=== PATIENT | male | born 1970 | race Two or more races ===

== ENCOUNTER 2024-05-19 22:28 | Emergency (ER) | payer SELFPAY ==
[2024-05-19 22:42] VITALS: BP 113/83; PULSE 95; RESP 20; TEMP 36.6; O2SAT 100; BMI 25.4
[2024-05-19 23:05] LABS: Glucose Point of Care 262 mg/dL (70-110)
[2024-05-19 23:09] VITALS: BP 113/83; RESP 18; O2SAT 97
[2024-05-19 23:16] LABS: Basophils % 0.3 %; Eosinophils # 0.1 10^3/uL (0.0-0.8); Eosinophils % 2.4 %; Hematocrit 40.6 % (37-53); Lymphocytes # 1.2 10^3/uL (0.8-4.8); Lymphocytes % 19.8 %; Mean Corpuscular HGB Conc 34.2 g/dL (30-55); Mean Corpuscular Hemoglobin 29.9 pg (27-33); Mean Corpuscular Volume 87.3 fl (82-101); Mean Platelet Volume 10.2 fL (7.4-10.4); Monocytes # 0.9 10^3/uL (0.2-0.9); Monocytes % 15.7 %; Neutrophils # 3.64 10^3/uL (1.8-7.7); Neutrophils % 61.5 %; Nucleated Red Blood Cells % 0 %; Platelet Count 101 10^3/cmm (157-399); Red Blood Count 4.65 10^6/uL (3.85-5.65); Red Cell Distribution Width 12.6 % (12.1-15.1); White Blood Count 5.92 10^3/uL (3.29-11.43)
[2024-05-19 23:31] LABS: Ketone (Acetest) Serum Negative (Negative)
[2024-05-19 23:34] LABS: Alanine Aminotransferase 46 U/L (0-41); Albumin Level 4.2 g/dL (3.5-5.2); Alkaline Phosphatase 115 U/L (40-130); Aspartate Amino Transferase 98 U/L (0-40); Blood Urea Nitrogen 30 mg/dL (6-20); Calcium 9.1 mg/dL (8.5-10.5); Carbon Dioxide 31 mmol/L (22-29); Chloride 89 mmol/L (98-107); Creatinine Clr Calc Pharmacy 58.1877; Globulin 3.6 g/dL (1.3-4.6); Glomerular Filtration Rate 69.8 mL/min (90-130); Glucose 259 mg/dL (65-115); Osmolality Calculated 295 mOsm/kg (285-295); Sodium 135 mmol/L (136-145); Total Protein 7.8 g/dL (6.6-8.7)
[2024-05-19] MEDS: sodium chloride 0.9% 1,000 ML 999 ML IV (23:40)
--- NOTE | 2024-05-19 23:40 | CTR_ITS ---
PROCEDURE INFORMATION: Exam: CT Abdomen And Pelvis With Contrast Exam date and time: 05/19/2024 11:58 PM Age: 53 years old Clinical indication: Abdominal pain; Additional info: N/v/d, elevated lfts and bilirubin TECHNIQUE: Imaging protocol: Computed tomography of the abdomen and pelvis with contrast. Radiation optimization: All CT scans at this facility use at least one of these dose optimization techniques: automated exposure control; mA and/or kV adjustment per patient size (includes targeted exams where dose is matched to clinical indication); or iterative reconstruction. Contrast material: OMNI 350; Contrast volume: 100 ml; Contrast route: INTRAVENOUS (IV); COMPARISON: No relevant prior studies available. RADIATION DOSE METRICS: Total DLP (mGy-cm): 442.04 FINDINGS: Liver: Hepatic steatosis. Gallbladder and biliary ducts: Normal. No calcified stones. No ductal dilation. Pancreas: Normal. No ductal dilation. Spleen: Normal. No splenomegaly. Adrenal glands: Normal. No mass. Kidneys and ureters: Right kidney perinephric fluid versus motion artifact, please correlate for possible pyelonephritis. Stomach and bowel: Unremarkable. No obstruction. No mucosal thickening. Appendix: No evidence of appendicitis. Intraperitoneal space: Unremarkable. No free air. No significant fluid collection. Vasculature: Unremarkable. No abdominal aortic aneurysm. Lymph nodes: Unremarkable. No enlarged lymph nodes. Urinary bladder: Unremarkable as visualized. Reproductive: Prostate gland enlarged, please correlate clinically. Bones/joints: Unremarkable. No acute fracture. Soft tissues: Unremarkable. CT/CT abdomen pelvis w con* [id number] IMPRESSION: 1. Hepatic steatosis. 2. Right kidney perinephric fluid versus motion artifact, please correlate for possible pyelonephritis. 3. Prostate gland enlarged, please correlate clinically.
[2024-05-19] MEDS: ondansetron 2 mg/ML SDV 2 mL 4 MG IVP (23:41)
--- NOTE | 2024-05-19 23:46 | ED_ITS ---
HPI - Nausea/Vomiting/Diarrhea 2 General: Chief complaint: Nausea/Vomiting/Diarrhea Stated complaint: n/v/ abd pain Time Seen by Provider: 05/19/24 22:51 Source: patient (Family is interpreting for him) Limitations: language barrier History of Present Illness: Patient presents here with nausea vomiting diarrhea. Patient says he cannot keep anything down. Patient is uncontrolled noncompliant diabetic. Patient denies abdominal pain coughs colds fevers chills or any sick contacts. He symptoms been going on for about 5 days and appear to be getting worse. Related Data Previous Rx's Medication Instructions Recorded ondansetron HCl 4 mg tablet 4 mg PO Q8H PRN nausea and 05/20/24 vomiting #14 tabs potassium chloride 20 mEq 20 meq PO BID #14 tabs 05/20/24 tablet,extended release Review of Systems 2 General: Reports: 10 or more systems reviewed and unremarkable except in HPI and below Physical Exam 2 Const: COMMON NORMALS: no acute distress, average body habitus, patient oriented x3, no limitations, healthy appearing, alert and well nourished HENMT: COMMON NORMALS: normocephalic, atraumatic, hearing grossly normal bilaterally, external ears normal, Normal external nose present and moist oral mucous membranes HEAD & SCALP: normocephalic and atraumatic NOSE: Normal external nose present EXTERNAL EAR: Yes external ears normal Neck/C-Spine: COMMON NORMALS: no JVD Chest: COMMONS NORMALS: normal inspection of the chest and normal palpation of entire chest wall Resp: COMMON NORMALS: normal respiratory effort, No retractions, No use of accessory muscles and clear to auscultation bilaterally AUSCULTATION: clear to auscultation bilaterally Cardio: COMMON NORMALS: no JVD, regular rate, regular rhythm, S1 normal heart sound present, S2 normal heart sound present, No gallops present (Cardio), No clicks present (Cardio), No murmurs present (Cardio) and No rub (Cardio) R ATE: regular rate RHYTHM: regular rhythm HEART SOUNDS: S1 normal heart sound present and S2 normal heart sound present GI: COMMON NORMALS: Normal to inspection, nondistended, normoactive bowel sounds present, Soft to palpation, non-tender, No hepatosplenomegaly present and no masses PALPATION: Yes Soft to palpation and Yes No hepatosplenomegaly present Neuro: COMMON NORMALS: patient oriented x3 SENSORIUM/ORIENTATION: Yes alert Course 2 Vital Signs: Vital signs: Vital Signs Temperature 98 F 05/19/24 22:42 Pulse Rate 95 05/19/24 22:42 Respiratory Rate 18 05/20/24 00:22 Blood Pressure 154/99 05/20/24 00:22 Pulse Oximetry 95 05/20/24 00:22 Oxygen Delivery Me thod Room Air 05/20/24 00:22 MDM - Nausea/Vomiting/Diarrhea Medical Decision Making Upon recheck of the patient patient is feeling much better, with further discussion patient said he does drink a lot Discussed the labs with him elevated lipase elevated GGT and liver enzymes, and CT scan. Patient will be placed on Zofran and potassium and discharged home to follow-up with his PCP. Patient was instructed to decrease or stop his alcohol intake and take his medicine as directed. Differential Diagnosis Likely gastroenteritis Medical Records I reviewed the patient's medical records. Lab Data I reviewed the patient's lab results. 05/19/24 23:03 05/19/24 23:03 Radiology Impressions Abdomen/Pelvis CT 05/19/24 23:40 IMPRESSION: 1. Hepatic steatosis. 2. Right kidney perinephric fluid versus motion artifact, please correlate for possible pyelonephritis. 3. Prostate gland enlarged, please correlate clinically. Laboratory Results WBC 5.92 10^3/uL (3.29-11.43) 05/19/24 23:03 RBC 4.65 10^6/uL (3.85-5.65) 05/19/24 23:03 Hgb 13.90 g/dL (11.27-16.99) 05/19/24 23:03 Hct 40.6 % (37-53) 05/19/24 23:03 MCV 87.3 fl (82-101) 05/19/24 23:03 MCH 29.9 pg (27-33) 05/19/24 23:03 MCHC 34.2 g/dL (30-55) 05/19/24 23:03 RDW 12.6 % (12.1-15.1) 05/19/24 23:03 Plt Count 101 10^3/cmm (157-399) L 05/19/24 23:03 MPV 10.2 fL (7.4-10.4) 05/19/24 23:03 Neut % (Auto) 61.5 % 05/19/24 23:03 Lymph % (Auto) 19.8 % 05/19/24 23:03 [place] % (Auto) 15.7 % 05/19/24 23:03 Eos % (Auto) 2.4 % 05/19/24 23:03 Baso % (Auto) 0.3 % 05/19/24 23:03 Neut # (Auto) 3.64 10^3/uL (1.8-7.7) 05/19/24 23:03 Lymph # (Auto) 1.2 10^3/uL (0.8-4.8) 05/19/24 23:03 [place] # (Auto) 0.9 10^3/uL (0.2-0.9) 05/19/24 23:03 Eos # (Auto) 0.1 10^3/uL (0.0-0.8) 05/19/24 23:03 Baso # (Auto) 0.0 10^3/uL (0.0-0.1) 05/19/24 23:03 Nucleated RBC % (auto) 0 % 05/19/24 23:03 Nucleated RBCs # 0.0 /100WBC 05/19/24 23:03 Sodium 135 mmol/L (136-145) L 05/19/24 23:03 Potassium 3.0 mmol/L (3.5-5.1) L 05/19/24 23:03 Chloride 89 mmol/L (98-107) L 05/19/24 23:03 Carbon Dioxide 31 mmol/L (22-29) H 05/19/24 23:03 Anion Gap 18.0 (5-19) 05/19/24 23:03 BUN 30 mg/dL (6-20) H 05/19/24 23:03 Creatinine 1.1 mg/dL (0.7-1.2) 05/19/24 23:03 GFR Calculation 69.8 mL/min (90-130) L 05/19/24 23:03 Glucose 259 mg/dL (65-115) H 05/19/24 23:03 POC Glucose 262 mg/dL (70-110) H 05/19/24 23:01 Calculated Osmolality 295 mOsm/kg (285-295) 05/19/24 23:03 Calcium 9.1 mg/dL (8.5-10.5) 05/19/24 23:03 Magnesium 1.9 mg/dL (1.7-2.3) 05/19/24 23:03 Total Bilirubin 2.0 mg/dL (0.15-1.2) H 05/19/24 23:03 GGT 627 U/L (8-61) H 05/19/24 23:03 AST 98 U/L (0-40) H 05/19/24 23:03 ALT 46 U/L (0-41) H 05/19/24 23:03 Alkaline Phosphatase 115 U/L (40-130) 05/19/24 23:03 Total Protein 7.8 g/dL (6.6-8.7) 05/19/24 23:03 Albumin 4.2 g/dL (3.5-5.2) 05/19/24 23:03 Globulin 3.6 g/dL (1.3-4.6) 05/19/24 23:03 Lipase 124 U/L (13-60) H 05/19/24 23:03 Serum Ketones Negative (Negative) 05/19/24 23:03 Hepatitis A IgM Ab Non-reactive (Nonreactive) 05/19/24 23:03 Hep Bs Antigen Non-reactive (Nonreactive) 05/19/24 23:03 Hep B Core IgM Ab Non-reactive (Nonreactive) 05/19/24 23:03 Hepatitis C Antibody Non-reactive (Nonreactive) 05/19/24 23:03 All radiology interpretation(s) finalized by discharge Discharge Plan Discharge Patient Disposition: Home Clinical Impression: Dehydration, Elevated liver enzymes, Alcohol use Nausea and vomiting Qualifiers: Vomiting type: unspecified Qualified Code(s): R11.2 - Nausea with vomiting, unspecified Condition: Stable Prescriptions: New ondansetron HCl 4 mg tablet 4 mg PO Q8H PRN (Reason: nausea and vomiting) Qty: 14 0RF potassium chloride 20 mEq tablet extended release 20 meq PO BID Qty: 14 0RF Discharge Orders: Discharge ED (Routine); Ordered 05/20/24 Ordered By: Ganesh Butcher Patient Instructions: Alcohol Abuse, Acute Nausea and Vomiting (ED) Activity Restrictions/Additional Instructions: Please decrease your alcohol you drink or preferably stop. Please get your prescriptions filled and take them as directed. Please follow-up with your family proximal physician of the neck 7 days for repeat of your potassium and further evaluation and treatment. Print Language: Citizen Of [place] Coding Level of Care Code ED [employer] for Mohsen Bianchi
[2024-05-19 23:52] LABS: Lipase 124 U/L (13-60); Magnesium 1.9 mg/dL (1.7-2.3)
[2024-05-20] MEDS: iohexol 350 mg/mL 500 mL Btl (per mL) IV (00:09)
[2024-05-20] MEDS: potassium chloride ER 20 mEq Tablet 40 MEQ PO (00:21)
[2024-05-20 00:22] VITALS: BP 154/99; RESP 18; O2SAT 95
[2024-05-20] MEDS: sodium chloride 0.9% 1,000 ML 999 ML IV (00:22)
[2024-05-20 00:49] LABS: Gamma Glutamyl Transferase 627 U/L (8-61)
[2024-05-20 01:50] LABS: Hepatitis A Antibody IgM Non-Reactive (Nonreactive); Hepatitis B Core IgM Non-Reactive (Nonreactive); Hepatitis B Surface Antigen Non-Reactive (Nonreactive); Hepatitis C Virus Antibody Non-Reactive (Nonreactive)
[2024-05-20 02:40] VITALS: BP 107/74; PULSE 98; RESP 18; O2SAT 94
== END 2024-05-20 00:30 | disposition home or self-care (01) ==
PROVIDERS: Emergency Provider Emergency Medicine
DX: R11.2 Nausea with vomiting, unspecified (principal); E86.0 Dehydration; F10.90 Alcohol use, unspecified, uncomplicated; R74.8 Abnormal levels of other serum enzymes
CPT/HCPCS: 36416; 74177; 80053; 80074; 82009; 82962; 82977; 83690; 83735; 85025; 96361; 96374; 99285; J2405; J7030